=== PATIENT | male | born 1965 ===

== ENCOUNTER 2019-08-14 12:31 | Emergency (ER) | payer SELFPAY ==
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
[2019-08-14] MEDS ORDERED: Ketorolac Tromethamine 30 MG/ML VIAL ONE (13:30)
== END 2019-08-14 14:10 | disposition home or self-care (01) ==
LOC: ERS 12:31
DX: S39.012A Strain of muscle, fascia and tendon of lower back, initial encounter (principal); V43.52XA Car driver injured in collision with other type car in traffic accident, initial encounter
CPT/HCPCS: 72040; 96372; C1713; J1885